=== PATIENT | female | born 1990 | race Caucasian/White ===

== ENCOUNTER 2022-09-01 21:21 | Emergency (ER) | payer BC, SELFPAY ==
[2022-09-01 21:24] VITALS: BP 113/77; PULSE 110; RESP 18; TEMP 36.6; O2SAT 100
[2022-09-01 23:28] LABS: Appearance Urine Turbid (Clear); Bacteria Urine Rare /hpf; Bilirubin Urine Negative (Negative); Color Urine Dark Yellow (Yellow); Glucose Urine UA Negative (Negative); Ketones Urine Trace mg/dL (Negative); Leukocyte Esterase Ur 2+ LEU/UL (Negative); Mucus Urine Present /lpf; Nitrate Urine Negative (Negative); Non Pathogenic Casts 0-2; Protein Urine 1+ mg/dL (Negative); Specific Grav Ur 1.019 (1.001-1.035); Squamous Epithelial Cell Urine Moderate /hpf (Few); WBC Urine 21-50 /hpf; pH Urine 6.5 (5.0-9.0)
[2022-09-01 23:35] LABS: Add Urine Microscopic? YES
--- NOTE | 2022-09-02 00:08 | ED.GENADULT ---
HPI - General Adult General Chief complaint: Abdominal Pain Stated complaint: chrons flare up, K low?? Time Seen by Provider: 09/01/22 22:23 History of Present Illness HPI narrative: This is a 31-year-old female presenting to the ED with a chief complaint of abdominal pain. Patient said the pain started 4 days ago. is primarily in the epigastric area and in the right lower quadrant. It is nonradiating, 8 out 10 intensity pain comes and goes. This is the patient's typical abdominal pain from her Crohn's flares. There are no exacerbating factors. There are no alleviating factors. Associated with nausea but no vomiting. She denies fever chills chest pain difficulty breathing. Patient has got an EGD in the past which showed gastritis. Patient says she has an allergy to contrast which is nausea and vomiting but she is okay if she gets Zofran Phenergan and The pain medication. Patient has never been in our hospital before.. The patient says that her GI physician is a [facility] although she does not trust going to [facility] because they kill people. Related Data Allergies Allergy/AdvReac Type Severity Reaction Status Date / Time belladonna alkaloids Allergy Stopped Verified 09/01/22 21:22 Breathing NSAIDS (Non-Steroidal Allergy Ulcers Verified 09/01/22 21:22 Anti-Inflamma iohexol AdvReac Nausea and Verified 09/01/22 21:22 [From contrast - CT, X-RAY] Vomiting Exam Narrative: APPEARANCE: No apparent distress. Head: atraumatic. EYES: EOMI, NOSE: Atraumatic NECK: Trachea midline RESPIRATORY: No increased rate of breathing CARDIOVASCULAR: RRR, ABDOMINAL: Abdomen is soft nontender with no guarding or rebound. Special attention was paid to the lower right and epigastric area but I was unable to elicit a grimace on deep palpation. MUSCULOSKELETAl: No obvious deformities NEURO: Alert. Moving 4/4 extremities SKIN:: Patient has multiple healing sores over her arms and legs. PSYCHIATRIC: Normal affect Course Vital Signs Vital signs: Vital Signs Temperature 97.9 F 09/01/22 21:24 Pulse Rate 110 H 09/01/22 21:24 Respiratory Rate 18 09/01/22 21:24 Blood Pressure 113/77 09/01/22 21:24 Pulse Oximetry 100 09/01/22 21:24 Oxygen Delivery Room Air 09/01/22 21:24 Temperature 97.9 F 09/01/22 21:24 Pulse Rate 110 H 09/01/22 21:24 Respiratory Rate 18 09/01/22 21:24 Blood Pressure 113/77 09/01/22 21:24 Pulse Oximetry 100 09/01/22 21:24 Oxygen Delivery Room Air 09/01/22 21:24 Medical Decision Making MDM Narrative Medical decision making narrative: -Presentation: 31-year-old female presenting to the ED for a chronic Crohn's flare with a specific list of medications that she would like. -DDX includes but is not limited to: Crohn's flare, chronic abdominal pain, drug-seeking/malingering, gastritis, appendicitis -Co-morbidities complicating care: -Social determinants of health: patient is disabled due to abdominal pain. Lives with her and children. -External Chart Review: No previous records in our system. -Hx from independent Sources: None -Discussion of Management/Consultants: none -Independent interpretation of studies: CBC showed white count of 13.4. Urine had 21-50 white blood cells and +2 leuk esterase. Patient denied urinary symptoms. CT abdomen pelvis was pending when the patient left without completing treatment. Dx tests considered but not ordered: -Procedures: -Interventions: 2 L normal saline, Pepcid, Zofran, Tylenol, Compazine -Shared decision making / Disposition: patient left without completing treatment after receiving her medications. -RX Vital Signs Vital Signs: Vital Signs Temperature 97.9 F 09/01/22 21:24 Pulse Rate 110 H 09/01/22 21:24 Respiratory Rate 18 09/01/22 21:24 Blood Pressure 113/77 09/01/22 21:24 Pulse Oximetry 100 09/01/22 21:24 Oxygen Delivery Room Air 09/01/22 21:24
[2022-09-02 00:37] VITALS: BP 111/76; PULSE 85; RESP 16; O2SAT 98
[2022-09-02] MEDS: SODIUM CHLORIDE 0.9% IV 1,000 ML 999 ML IV CONT (00:42)
[2022-09-02 00:43] LABS: Basophils Percent Auto 0.1 % (0.2-1.2); Eosinophils Absolute Auto 0.2 K/mm3 (0-0.3); Eosinophils Percent Auto 1.1 % (0-4.4); Hematocrit 39.1 % (37.0-47.0); Hemoglobin 13.9 g/dL (12.0-15.0); Immature Granulocyte Absolute 0.04 K/mm3 (0.00-0.031); Immature Granulocyte Percent A 0.3 % (0-0.5); Lymphocytes Absolute Auto 1.06 K/mm3 (0.9-3.2); Lymphocytes Percent Auto 7.9 % (18.3-44.2); Mean Corpuscular HGB Conc 35.5 g/dl (32-36); Mean Corpuscular Hemoglobin 30.2 pg (26-34); Mean Corpuscular Volume 84.8 fl (80-100); Mean Platelet Volume 9.8 fl (7.4-10.4); Monocytes Absolute Auto 0.8 K/mm3 (0.1-0.6); Monocytes Percent Auto 5.7 % (2.6-8.5); Neutrophils Absolute Auto 11.4 K/mm3 (1.3-6.7); Neutrophils Percent Auto 84.9 % (45.5-73.1); Platelet Count Result 334 k/mm3 (150-375); Red Blood Count 4.61 M/mm3 (4.2-5.4); Red Cell Distribution Width 14.2 % (11.5-14.5); White Blood Count 13.4 K/mm3 (4.5-10.0)
[2022-09-02 00:46] VITALS: BP 115/70; PULSE 105; RESP 16; O2SAT 97
[2022-09-02] MEDS: ONDANSETRON INJ 4 MG/2 ML VIAL IV PUSH (00:46)
[2022-09-02] MEDS: FAMOTIDINE 20 MG/2 ML VIAL IV PUSH (00:46)
[2022-09-02] MEDS: PROCHLORPERAZINE EDISYLATE 10 MG/2 ML VIAL IV PUSH (00:54)
[2022-09-02 01:01] VITALS: BP 90/57; PULSE 102; RESP 16; O2SAT 96
--- NOTE | 2022-09-02 01:12 | PC.NURSE ---
0110 - Pt called into , per pt request. Upon entering pt room, pt requested to have IV removed because I have kids and I need to get home to them. My called and he is on his way. Please remove my IV. Pt refused to sign AMA paperwork. made aware.
== END 2022-09-02 01:10 | disposition left against medical advice (07) ==
PROVIDERS: Emergency Medicine; Emergency Provider Emergency Medicine; PCP Internal Medicine
DX: R10.13 Epigastric pain (principal); K50.90 Crohn's disease, unspecified, without complications
CPT/HCPCS: 36415; 81001; 81025; 85025; 87086; 87088; 96374; 96375; 99284; J0131; J0780; J2405; J7030